=== PATIENT | female | born 1990 | race Native Hawaiian/Other Pacific Islander ===

== ENCOUNTER 2019-11-06 14:55 | Emergency (ER) | payer OTHER ==
[~2019-11-06] VITALS: Ht 157.5 cm; Wt 88.0 kg
[2019-11-06 15:11] VITALS: TEMP 98
[2019-11-06] MEDS ORDERED: SPIRONOLACT50 MG PO (15:28)
[2019-11-06] MEDS ORDERED: METF500T PO (15:29)
[2019-11-06] MEDS ORDERED: VITAMIN D PO (15:29)
[2019-11-06] MEDS ORDERED: BIOTIN5000 MC1 SL (15:30)
[2019-11-06 15:58] LABS: PLATELET COUNT 366 K/uL (152-353)
[2019-11-06 16:06] LABS: POTASSIUM 3.7 mmol/L (3.6-5.2)
[2019-11-06 16:19] LABS: PARTIAL THROMBOPLASTIN TIME 27.7 SECONDS (24.5-33.6)
[2019-11-06 17:36] VITALS: BP 122/81
== END 2019-11-06 17:36 | disposition home or self-care (01) ==
LOC: ED 14:55
PROVIDERS: Hospitalist
DX: O20.0 Threatened abortion (principal); Z3A.01 Less than 8 weeks gestation of pregnancy
CPT/HCPCS: 80053; 81000; 81025; 82150; 83690; 84702; 85027; 85610; 85730; 96360; 99284

== ENCOUNTER 2020-01-05 14:16 | Emergency (ER) | payer OTHER ==
[~2020-01-05] VITALS: Ht 157.5 cm; Wt 86.2 kg
[~2020-01-05 14:16] MED LIST: BIOTIN5000 MC1 SL; METF500T PO; SPIRONOLACT50 MG PO; VITAMIN D PO
[2020-01-05 14:27] VITALS: TEMP 99.1
[2020-01-05 17:51] LABS: PLATELET COUNT 314 K/uL (152-353)
[2020-01-05 18:37] LABS: POTASSIUM 3.4 mmol/L (3.6-5.2)
[2020-01-05 21:38] VITALS: BP 127/79
== END 2020-01-05 21:48 | disposition home or self-care (01) ==
LOC: ED 14:16
PROVIDERS: General Practice
DX: G43.909 Migraine, unspecified, not intractable, without status migrainosus (principal); D64.89 Other specified anemias; Z98.890 Other specified postprocedural states
CPT/HCPCS: 80053; 83605; 85027; 96374; 96375; 99284; J1200; J2765

== ENCOUNTER 2020-04-19 17:23 | Outpatient (CLI) | payer OTHER | END 2020-04-19 23:33 | disposition home or self-care (01) | LOC: LAB 17:23 | DX: N91.2 Amenorrhea, unspecified (principal) | CPT/HCPCS: 84702 ==

== ENCOUNTER 2020-12-27 20:08 | Emergency (ER) | payer OTHER ==
[~2020-12-27] VITALS: Ht 157.5 cm; Wt 82.6 kg
[2020-12-27 23:35] VITALS: BP 128/88; TEMP 98.6
== END 2020-12-27 23:35 | disposition home or self-care (01) ==
LOC: ED 20:08
DX: R10.84 Generalized abdominal pain (principal); Z33.1 Pregnant state, incidental
CPT/HCPCS: 36415; 81000; 84702; 99284

== ENCOUNTER 2022-05-16 17:04 | Outpatient (CLI) | payer OTHER ==
[2022-05-16 17:27] LABS: PLATELET COUNT 403 K/uL (152-353)
== END 2022-05-16 21:01 | disposition home or self-care (01) ==
LOC: LABW 17:04
PROVIDERS: ATTEND Nurse Practitioner Family
DX: J01.90 Acute sinusitis, unspecified (principal)
CPT/HCPCS: 36415; 85027